=== PATIENT | female | born 1950 | race Asian ===

== ENCOUNTER → 2019-09-18 | Outpatient (CLI) | payer MEDICARE ==
[~2019-09-18] MED LIST: ALBU90OI INH; CALCIUM PO; EYE DROPS; LEVSOD75 PO; PRED20 PO; SULTRIDS PO; THYROID PO
[2019-09-20 14:01] LABS: Stool Occult Bld Immuno 1 Negative (NEGATIVE)
== END | disposition home or self-care (01) ==
LOC: LAB SHORT 15:00 → OLS 15:00
PROVIDERS: Internal Medicine Gastroenterology
DX: R10.13 Epigastric pain (principal); Z78.9 Other specified health status
CPT/HCPCS: G0328

== ENCOUNTER → 2019-09-19 | Outpatient (CLI) | payer MEDICARE ==
[~2019-09-19] MED LIST changes: +EUTHYROX100 MCG PO; +Fish Oil 10001000 MG PO; +OSTEO BI-FLEX1 EACH PO; +PYRI100 PO
[2019-09-20 14:01] LABS: Stool Occult Bld Immuno 1 Negative (NEGATIVE)
== END | disposition home or self-care (01) ==
LOC: LAB SHORT 15:00 → OLS 15:00
PROVIDERS: Internal Medicine Gastroenterology
DX: R10.13 Epigastric pain (principal); Z78.9 Other specified health status
CPT/HCPCS: G0328

== ENCOUNTER → 2019-09-25 | Outpatient (CLI) | payer MEDICARE ==
[~2019-09-25] MED LIST changes: -EUTHYROX100 MCG PO; -Fish Oil 10001000 MG PO; -OSTEO BI-FLEX1 EACH PO; -PYRI100 PO
[2019-09-25 15:09] LABS: International Normalized Ratio 0.96; Prothrombin Time Results 10.3 Sec (9.7-11.5)
[2019-09-26 07:08] LABS: IMMUNOGLOBULIN A, QN, SERUM 254 mg/dL (87-352); IMMUNOGLOBULIN G, QN, SERUM 1046 mg/dL (586-1602); IMMUNOGLOBULIN M, QN, SERUM 133 mg/dL (26-217)
[2019-09-26 08:08] LABS: HBSAG SCREEN Negative (Negative)
== END | disposition home or self-care (01) ==
LOC: EDSTATUS 08:38 → LAB SHORT 12:12 → OLS 12:12
PROVIDERS: Internal Medicine Gastroenterology
DX: Z11.59 Encounter for screening for other viral diseases (principal); R10.13 Epigastric pain
CPT/HCPCS: 36415; 82103; 82105; 82390; 82784; 83516; 85610; 86038; 86317; 86708; 87340

== ENCOUNTER → 2020-03-29 | Outpatient (CLI) | payer MEDICARE ==
[~2020-03-29] MED LIST changes: +EUTHYROX100 MCG PO; +Fish Oil 10001000 MG PO; +OSTEO BI-FLEX1 EACH PO; +PYRI100 PO
== END | disposition home or self-care (01) ==
LOC: LAB SHORT 15:39 → LAB EV 15:39
DX: N39.0 Urinary tract infection, site not specified (principal)
CPT/HCPCS: 87086

== ENCOUNTER 2021-01-26 08:26 | Day surgery (SDC) | payer MEDICARE ==
[~2021-01-26] VITALS: Ht 154.9 cm; Wt 62.3 kg
[~2021-01-26 08:26] MED LIST changes: +EUTHYROX100 MC1 PO; +GLUCHON PO; +OMEGA-3 FISH O1 EAC6 PO
--- NOTE | 2021-01-26 09:08 | NUR ---
01/26/21 0908 Jerry Lim PATIENT TOOK BLACK TAB FOR PREP/ PATIENT INSTRUCTED ON ENEMA INSTRUCTIONS AND CURRENTLY IN BATHROOM. INSTRUCTED HE WOULD LIKE PATIENT TO DO ENEMA BEFORE PROCEDURE WHILE HERE.
--- NOTE | 2021-01-26 13:27 | NUR ---
01/26/21 1327 Mckayla Del Rio BLOOD DRAWN FOR HEP B PCR. LAB WAS CALLED BY [email or web address] TO VERIFY TUBE COLOR FOR DRAW. PER LAB DRAW 2 GOLD TUBES WHICH WAS DRAWN & THEN WALKED UP TO BE DROPPED OFF AT LAB.
[2021-01-30 13:08] LABS: HBV IU/ML <10 IU/mL (.)
== END 2021-01-26 12:00 | disposition home or self-care (01) ==
LOC: ORSCSDS 08:26
PROVIDERS: Internal Medicine Gastroenterology
PROC: 0DB68ZX Excision of Stomach, Via Natural or Artificial Opening Endoscopic, Diagnostic (ICD-10-PCS; principal; 2021-01-26 09:45)
PROC: 0DJD8ZZ Inspection of Lower Intestinal Tract, Via Natural or Artificial Opening Endoscopic (ICD-10-PCS; principal; 2021-01-26 09:45)
DX: Z12.11 Encounter for screening for malignant neoplasm of colon (principal); R10.13 Epigastric pain; K29.70 Gastritis, unspecified, without bleeding; B19.10 Unspecified viral hepatitis B without hepatic coma; Z79.899 Other long term (current) drug therapy
CPT/HCPCS: 43239; G0121; 87517; 88305; 88342; J2704; J7120